=== PATIENT | male | born 1955 | race Caucasian/White ===

== ENCOUNTER 2020-06-03 22:32 | Emergency (ER) | payer BC, OTHER ==
[~2020-06-03] VITALS: Ht 172.7 cm; Wt 103.0 kg
[2020-06-03] MEDS ORDERED: OXYcodone IR 30 MG TABLET PO ONE (23:00)
[2020-06-03 23:36] VITALS: BP 142/80
--- NOTE | 2020-06-03 23:37 | NUR ---
Pt to ER after running out of pain meds for chronic back pain. Pt medicated per order for pain. Pt DC'd to home with written and verbal instructions. Pt instructed to f/u with pain specialist and f/u provided. Pt ambulatory our of ED with spouse.
== END 2020-06-03 23:39 | disposition home or self-care (01) ==
LOC: ED 23:25
DX: M54.5 Low back pain (principal); G89.29 Other chronic pain; F19.20 Other psychoactive substance dependence, uncomplicated; I10 Essential (primary) hypertension; E11.9 Type 2 diabetes mellitus without complications; F17.290 Nicotine dependence, other tobacco product, uncomplicated
CPT/HCPCS: 99283; 99406